=== PATIENT | female | born 1970 | race Caucasian/White ===

== ENCOUNTER 2018-07-02 21:38 | Emergency (ER) | payer MEDICARE, MEDICAID ==
[2018-07-02 21:55] VITALS: RESP 20; TEMP 96.7; O2SAT 99
[2018-07-02 22:17] VITALS: BP 141/84; PULSE 94
== END 2018-07-02 22:15 | disposition home or self-care (01) | DRG 914 ==
LOC: ED 21:38
DX: S09.90XA Unspecified injury of head, initial encounter (principal); W06.XXXA Fall from bed, initial encounter; T14.8XXA Other injury of unspecified body region, initial encounter
CPT/HCPCS: 99282